=== PATIENT | male | born 1940 | race Two or more races ===

== ENCOUNTER 2023-06-21 04:18 | Day surgery (SDC) | payer OTHER ==
[2023-06-17 09:12] VITALS: BMI 20.7
[2023-06-21] MEDS ORDERED: MIDAZOLAM HCL 2 MG/2 ML SINGLE DOSE VIAL ONE (15:11)
[2023-06-21] MEDS ORDERED: ceFAZolin SODIUM 1 GM VIAL ONE (15:42)
[2023-06-21] MEDS ORDERED: ONDANSETRON 4 MG/2 ML VIAL ONE (15:44)
[2023-06-21] MEDS ORDERED: PROPOFOL 20 ML ONE (15:45)
[2023-06-21] MEDS ORDERED: ceFAZolin SODIUM 1 GM VIAL IVPB ONE (15:45)
[2023-06-21] MEDS ORDERED: oxyCODONE HCL 5 MG TABLET PO PRN ×2 (17:28)
[2023-06-21] MEDS ORDERED: ONDANSETRON 4 MG/2 ML VIAL IVPUSH PRN (17:28)
[2023-06-21] MEDS ORDERED: PROMETHAZINE HCL 25 MG/1 ML VIAL IVPB PRN (17:28)
[2023-06-21] MEDS ORDERED: LACTATED RINGERS SOLUTION 1,000 ML IV SCH (17:30)
[2023-06-21 20:29] VITALS: RESP 18
[2023-06-21 20:32] VITALS: BP 110/60; PULSE 60; TEMP 97.9
== END 2023-06-21 19:30 | disposition home or self-care (01) ==
LOC: JASU-SURG 04:18
PROVIDERS: ATTEND Urology
PROC: 0T9B80Z Drainage of Bladder with Drainage Device, Via Natural or Artificial Opening Endoscopic (ICD-10-PCS; 2023-06-21)
PROC: 0T7D8ZZ Dilation of Urethra, Via Natural or Artificial Opening Endoscopic (ICD-10-PCS; principal; 2023-06-21 15:00)
PROC: 0T7D8ZZ Dilation of Urethra, Via Natural or Artificial Opening Endoscopic (ICD-10-PCS; 2023-06-21 15:00)
DX: N35.912 Unspecified bulbous urethral stricture, male (principal)
CPT/HCPCS: 94760

== ENCOUNTER 2023-06-30 23:04 | Emergency (ER) | payer OTHER ==
[2023-06-30 23:09] VITALS: BP 181/75; PULSE 76; RESP 18; TEMP 98; BMI 21.2
[2023-07-01 00:06] LABS: BASO % 0.5 % (0-2.0); EOS % 2.7 % (0-4.5); HEMATOCRIT 47.4 % (35.4-49); HEMOGLOBIN 15.8 GM/dL (11.7-16.9); LYMPH % 39.1 % (8-40); MCH 28.9 pg (25.7-33.7); MCHC 33.3 g/dl (32.0-35.9); MEAN CELL VOLUME 86.7 fl (80-96); MEAN PLT VOLUME 9.3 fl (7.5-11.1); MONO % 8.9 % (3.8-10.2); NEUT % 48.8 % (42.8-82.8); PLATELET COUNT 165 10^3/uL (134-434); RBC 5.47 M/mm3 (4.00-5.60); RDW 14.3 % (11.9-15.9); WHITE BLOOD COUNT 5.9 K/mm3 (4.0-10.0)
[2023-07-01 00:18] LABS: INR 1.05 (0.83-1.09); PROTHROMBIN TIME (PATIENT) 12.2 SEC (9.7-13.0)
[2023-07-01 00:20] LABS: EPI CELLS 6 /uL (0-25.1); HYALINE CASTS 0 /uL (0-3.1); URINE APPEARANCE CLOUDY; URINE BILIRUBIN 1+ (NEGATIVE); URINE COLOR RED; URINE GLUCOSE (UA) NEGATIVE (NEGATIVE); URINE KETONE NEGATIVE (NEGATIVE); URINE LEUK ESTERASE 1+ (NEGATIVE); URINE NITRITE POSITIVE (NEGATIVE); URINE PROTEIN 3+ (NEGATIVE); URINE RBC 13767 /uL (0-23.9); URINE UROBILINOGEN 0.2 mg/dL (0.2-1.0); URINE WBC 78 /uL (0-25.8)
[2023-07-01 00:21] LABS: ACTIVATED PTT 30.6 SECONDS (25.2-36.5)
[2023-07-01 00:22] LABS: POTASSIUM 4.5 mmol/L (3.5-5.1)
[2023-07-01 00:24] LABS: CALCIUM 9.1 mg/dL (8.5-10.1)
[2023-07-01 00:25] LABS: ALBUMIN 3.9 g/dl (3.4-5.0); BLOOD UREA NITROGEN 22.9 mg/dL (7-18)
[2023-07-01 00:28] LABS: CREATININE 0.9 mg/dL (0.55-1.3)
== END 2023-07-01 01:18 | disposition home or self-care (01) ==
LOC: JER 23:04
DX: R31.9 Hematuria, unspecified (principal); R30.0 Dysuria; R10.30 Lower abdominal pain, unspecified
CPT/HCPCS: 36415; 80053; 81003; 85025; 85610; 85730; 86850; 86900; 86901; 87086; 99283-25